=== PATIENT | male | born 1975 | race Caucasian/White ===

== ENCOUNTER 2023-02-13 17:05 | Observation (INO) | payer SELFPAY ==
[2023-02-13] VITALS (39 sets, daily range): BP systolic 157–223; BP diastolic 92–137; PULSE 72–119; RESP 8–23; TEMP 36.7; O2SAT 96–100
--- NOTE | 2023-02-13 17:49 | DI.CT_ITS ---
Exam(s) CT HEAD WO EXAM: CT HEAD WO CLINICAL HISTORY: ams. TECHNIQUE: Imaging Protocol: Axial computed tomography images with coronal and sagittal reformatted images were created and reviewed COMPARISON: No exams were available for comparison FINDINGS: There are no skull fractures. There is no fluid in the visualized paranasal sinuses. There is no evidence of intracranial hemorrhage, mass effect, or shift of midline structures. There are no extra-axial fluid collections. The ventricles are not enlarged or shifted and there is no blo od within the ventricular system nor within the basal cisterns. IMPRESSION: No acute intracranial findings on this noninfused CT scan of the brain. RADIATION DOSE DELIVERED: Total DLP DATA REPOSITORY: All CT scans at this facility are submitted to the National Radiology Data Registry (NRDR) Dose Index Registry (DIR) with the [employer] ([employer]). RADIATION OPTIMIZATION: All CT scans at this facility use at least one of these dose optimization te chniques: automated exposure control; mA and/or kV adjustment per patient size (includes targeted exa ms where dose is matched to clinical indication); or iterative reconstruction.
[2023-02-13] MEDS: Ondansetron 4 MG/2 ML VIAL (17:50)
--- NOTE | 2023-02-13 17:53 | DI.VRAD_ITS ---
PROCEDURE INFORMATION: Exam: CT Head Without Contrast Exam date and time: 02/13/2023 5:41 PM Age: 47 years old Clinical indication: Altered mental status/memory loss; Other: Believed to have fell while skiing, doesn't remember. Patient HX: AMS TECHNIQUE: Imaging protocol: Computed tomography of the head without contrast. COMPARISON: No relevant prior studies available. FINDINGS: Brain: Mild volume loss No hemorrhage. Unremarkable white matter. No mass effect. Cerebral ventricles: No ventriculomegaly. Paranasal sinuses: Visualized sinuses are unremarkable. No fluid levels. Mastoid air cells: Visualized mastoid air cells are well aerated. Bones/joints: Unremarkable. No acute fracture. Soft tissues: Unremarkable. IMPRESSION: No acute intracranial abnormality. Dictated and Authenticated by: Ivan Ross MD. Ordering:[facility] Anne Patel MD
[2023-02-13 18:05] LABS: Abs Immature Grans 0.03 10^3/uL (0.0-0.06); Absolute Basophil Count 0.04 10^3/uL (0.0-0.2); Absolute Eosinophil Count 0.06 10^3/uL (0.0-0.7); Absolute Monocyte Count 0.53 10^3/uL (0.1-0.8); Absolute Neutrophil Count 7.35 10^3/uL (1.2-6.7); Basophils % 0.4; Eosinophils % 0.6; HCT 51.6 % (40.0-50.0); HGB 17.6 g/dL (13.5-17.5); Immature Grans % 0.3; MCH 30.3 pg (27.0-33.0); MCHC 34.1 % (32.0-36.0); MCV 89 fL (80-95); MPV 10.2 fL (8.0-11.0); Monocytes % 5.7; Platelet Count 276 10^3/uL (130-400); RDW 12.2 % (11.8-14.1); RDW-SD 39.8 fL; WBC 9.31 10^3/uL (4.4-10.8)
[2023-02-13 18:17] LABS: Prothrombin Time 10.2 sec (9.1-11.1)
[2023-02-13 18:23] LABS: *AMPHETAMINES SCREEN URINE Negative (Negative); *BARBITURATES SCREEN URINE Negative (Negative); *BENZODIAZEPINES SCREEN URINE Negative (Negative); Cannabinoids THC Negative (Negative); Cocaine Screen,Urine Negative (Negative); METHADONE URINE SCREEN Negative (Negative); OPIATES URINE SCREEN Negative (Negative)
[2023-02-13 18:25] LABS: Tricyclic Antidepressants Negative (Negative)
[2023-02-13 18:27] LABS: ALT 27 U/L (16-63); AST 21 U/L (15-37); Albumin 4.7 g/dL (3.4-5.0); Alkaline Phosphatase 77 U/L (46-116); BUN 12 mg/dL (7-18); Bilirubin, Total 0.8 mg/dL (0.2-1.0); CREATININE 1.2 mg/dL (0.70-1.30); Chloride 101 mmol/L (98-107); Glucose 105 mg/dL (74-106); Potassium 3.4 mmol/L (3.5-5.1); Sodium 140 mmol/L (136-145); Total Protein 9.4 g/dL (6.4-8.2)
[2023-02-13 18:32] LABS: ETHANOL BLOOD < 3.0 mg/dL (<10)
[2023-02-13] MEDS: hydrALAZINE 20 MG/ML VIAL 10 MG IVP ×2 (18:37→19:24)
--- NOTE | 2023-02-13 19:02 | NUR.NOTE ---
Nursing Note: Called pts dm Valdivia with pts verbal consent to inform her that pt will have to be monitored and will not be able to make it to work tomorrow.
--- NOTE | 2023-02-13 19:32 | ED.GENADUL_ITS ---
Discharge Plan Disposition Patient Disposition: Admit to [facility] Discharge Details Chief Complaint: HeadInjury Clinical Impression: Post concussive syndrome, Hypertension Primary Care Provider: Angy,Local ED Provider: Francia Rodríguez Home Meds and New Rx's Prescriptions: No Action No Known Home Meds Medical Decision Making Emergent evaluation of altered mental status. Initial differential includes closed head injury, hypertensive emergency, intoxication. Patient has no obvious signs of trauma and other than his confusion, does not have focal neurologic deficits. He has noted to be very hypertensive but denies a history of hypertension and is stopped to take medicine for this his friend states that when they started speaking today, seem to be completely normal. It was not until this went down the [place] that he seemed to be confused. He did not see him fall or have a crash, but he assumed he did based on his appearance when he got to the bottom of the [place] [address] CT head without acute process. Lab works unremarkable including alcohol and drug levels. His blood pressure is still significantly elevated, I am not sure if this is contributing to his mental status. I have contacted [facility] for consultation and possible transfer. 2000 discussed with [facility] trauma surgery. After reviewing the case, it seems that this is likely severe concussive process. Blood pressure elevation is unlikely related to the head injury. I have added cardiac biomarkers and EKG and chest x-ray, these findings are unremarkable. Symptoms of confusion seem to being slightly but patient is still having significant memory issues. At this time I do not feel that he is stable for discharge home. I discussed with the hospitalist and will keep the patient in-house overnight for monitoring of his mental status and blood pressure. Medical Records Medical records reviewed: Yes I reviewed the patient's medical records. HPI General Date/Time Provider Initiated Documentation: 02/13/23 17:24 . Limitations to Documentation: altered mental status . Information obtained by: family . HPI Narrative: 47-year-old gentleman without known medical history presents for evaluation of altered mental status. Patient was skiing with his friend who provides the majority of the history today. The friend reports that he was skiing ahead of him and waited for the patient to arrive at the bottom of the hill. When he arrived at the bottom of the hill his helmet was askew his goggles were off and the lenses had been popped out of his goggles. The patient was then noted to be very confused. They were evaluated by the medical service at the [facility] who referred them to the emergency department for further evaluation. He denies any alcohol or drug use, but the patient cannot remember anything from the last 2 days. Related Data Home Medications Medication Instructions Recorded Confirmed Unknown [No Known Home Meds] 02/13/23 02/13/23 Allergies Allergy/AdvReac Type Severity Reaction Status Date / Time Sulfa (Sulfonamide Allergy Unverified 02/13/23 17:22 Antibiotics) cats Allergy Uncoded 02/13/23 17:22 General Stated Complaint: HeadInjury MAXINE: 3 PFSH All Active Problems (Updated 02/13/23 @ 20:49 by Francia Rodríguez MD) Hypertension (Acute) Post concussive syndrome (Acute) Social History Smoking/Tobacco Use Status: Never Smoking risk assessment performed?: Yes Alcohol Intake: never Substance use type: does not use Do you feel safe at home: Yes Do you feel safe in your relationship?: Yes Exam Narrative Exam Narrative: Review of Systems: All systems reviewed & are unremarkable except as noted in HPI and below: CONSTITUTIONAL: Alert Well-developed, no acute distress + Hypertensive HEENT: NCAT EYES: PERRL, no conjunctival injection CVS: RRR, No murmurs or gallops. Peripheral pulses 2+ and equal in all extremities Brisk capillary refill in all extremities. No peripheral edema RESP: Unlabored respiratory effort, Clear to auscultation bilaterally No wheezes rales or rhonchi GI: Soft, Nontender, Nondistended, No organomegaly MSK: Extremities with full range of motion, no deformity or TTP SKIN: Warm, Dry. No rashes or lesions. NEURO: No focal neurologic deficits. gear changer II-XII grossly intact Oriented to self, able to identify his friend, not able to identify location, date or month Course Vital Signs Vital signs: Vital Signs Temperature 36.7 C 02/13/23 17:15 Pulse 82 02/13/23 17:15 Respiratory Rate 18 02/13/23 17:15 Blood Pressure 223/124 H 02/13/23 17:15 Pulse Oximetry 97 02/13/23 17:15 Temperature 36.7 C 02/13/23 17:15 Pulse 88 02/13/23 19:00 Pulse 89 12/03/23 19:01 Respiratory Rate 15 02/13/23 19:01 Respiratory Effort Normal 02/13/23 17:31 Respiratory Depth Normal 02/13/23 17:31 Respiratory Pattern Normal 02/13/23 17:31 Blood Pressure 211/113 H 02/13/23 19:00 Blood Pressure Mean 150 02/13/23 19:00 Blood Pressure Position Sitting 02/13/23 17:15 Pulse Oximetry 98 02/13/23 19:01 Oxygen Delivery Method Room Air 02/13/23 17:15 Oxygen Flow Rate 0 02/13/23 17:15 Lab/Test Results Lab/Test Results: Laboratory Tests Range/Units 02/13/23 02/13/23 17:25 17:30 WBC (4.4-10.8) 10^3/uL 9.31 RBC (4.36-5.78) 10^6/uL 5.80 H Hgb (13.5-17.5) g/dL 17.6 H Hct (40.0-50.0) % 51.6 H MCV (80-95) fL 89 MCH (27.0-33.0) pg 30.3 MCHC (32.0-36.0) % 34.1 RDW (11.8-14.1) % 12.2 Plt Count (130-400) 10^3/uL 276 MPV (8.0-11.0) fL 10.2 Immature Gran % 0.3 Neutrophils % 79.0 Lymphocytes % 14.0 Monocytes % 5.7 Eosinophils % 0.6 Basophils % 0.4 Nucleated RBC % (0.0-0.3) % 0.0 Absolute Neutrophils (1.2-6.7) 10^3/uL 7.35 H Absolute Lymphocytes (1.2-3.4) 10^3/uL 1.30 Absolute Monocytes (0.1-0.8) 10^3/uL 0.53 Absolute Eosinophils (0.0-0.7) 10^3/uL 0.06 Absolute Basophils (0.0-0.2) 10^3/uL 0.04 PT (9.1-11.1) sec 10.2 INR (0.9-1.1) 1.0 Sodium (136-145) mmol/L 140 Potassium (3.5-5.1) mmol/L 3.4 L Chloride (98-107) mmol/L 101 Carbon Dioxide (21.0-32.0) mmol/L 28.0 Anion Gap (3-11) mmol/L 11.0 BUN (7-18) mg/dL 12 Creatinine (0.70-1.30) mg/dL 1.2 Est GFR (CKD-EPI 2020) (mL/min/1.73m2) 76.00 Glucose (74-106) mg/dL 105 Calcium (8.5-10.1) mg/dL 10.0 Total Bilirubin (0.2-1.0) mg/dL 0.8 AST (15-37) U/L 21 ALT (16-63) U/L 27 Alkaline Phosphatase (46-116) U/L 77 Total Protein (6.4-8.2) g/dL 9.4 H Albumin (3.4-5.0) g/dL 4.7 Urine Opiates Screen (Negative) Negative Urine Methadone Screen (Negative) Negative Ur Barbiturates Screen (Negative) Negative Ur Tricyclics Screen (Negative) Negative Ur Amphetamines Screen (Negative) Negative U Benzodiazepines Scrn (Negative) Negative Urine Cocaine Screen (Negative) Negative Ur THC Screen (Negative) Negative Ethyl Alcohol (<10) mg/dL < 3.0
--- NOTE | 2023-02-13 20:00 | DI.RAD_ITS ---
Exam(s) XR PORTABLE CHEST AP EXAM: XR PORTABLE CHEST AP CLINICAL HISTORY: ams. TECHNIQUE: 2D digital imaging was performed. COMPARISON: No exams were available for comparison FINDINGS: Single AP portable view. Heart size is upper normal. The mediastinum is not widened. Lungs are clear. No infiltrates nor obvious pleural effusions. IMPRESSION: No acute pulmonary findings on this single AP portable view of the chest. DATA REPOSITORY: RADIATION DOSE DELIVERED:
--- NOTE | 2023-02-13 20:00 | RT.EKG_ITS ---
APPROVED REPORT Exam: Resting ECG Reason for Exam: hypertension Patient Location: E HR:106 bpm ECG Measurements Heart Rate 106 AXIS SC 147 P 50 QRSd 89 QRS -5 QT 358 T -8 QTc 475 Conclusion Sinus tachycardia rate [address] changes
--- NOTE | 2023-02-13 20:26 | DI.VRAD_ITS ---
PROCEDURE INFORMATION: Exam: XR Chest Exam date and time: 02/13/2023 8:12 PM Age: 47 years old Clinical indication: Other: AMS TECHNIQUE: Imaging protocol: Radiologic exam of the chest. Views: 1 view. COMPARISON: No relevant prior studies available. FINDINGS: Lungs: Unremarkable. No consolidation. Pleural spaces: Unremarkable. No pleural effusion. No pneumothorax. Heart/Mediastinum: Unremarkable. No cardiomegaly. Bones/joints: Unremarkable. IMPRESSION: No acute findings. Dictated and Authenticated by: Ivan Ross MD. [facility] Anne Patel MD
--- NOTE | 2023-02-13 20:29 | HPE_ITS ---
Date of service: 02/13/23 Time of Service: 20:29 Assessment and Plan Assessment and plan (1) Post concussive syndrome: Status: Acute Assessment and plan: referred to observation. head CT with no acute intracranial findings. neuro exam overnight. keep diet light non narcotic pain medication, antiemetics if needed. (2) Hypertension: Status: Acute Assessment and plan: blood pressure found to be elevated in setting of suspected head injury. no findings on CT and neuro exam unremarkable. EKG and troponin unremarkable will monitor anticipate discharge tomorrow if remains medically stable. discussed with Dr Lawrence History of Present Illness History of Present Illness Chief Complaint: altered mental status Narrative: this is a 47 year old male with no significant past medical history, per ED record: 47-year-old gentleman without known medical history presents for evaluation of altered mental status. Patient was skiing with his friend who provides the majority of the history today. The friend reports that he was skiing ahead of him and waited for the patient to arrive at the bottom of the [place]. When he arrived at the bottom of the [place] his helmet was askew his goggles were off and the lenses had been popped out of his goggles. The patient was then noted to be very confused. They were evaluated by the medical service at the [facility] who referred them to the emergency department for further evaluation. He denies any alcohol or drug use, but the patient cannot remember anything from the last [address] unremarkable. only finding was hypertension and tachycardia, which I suspect d/t anxiety which he admits d/t loss of memory. he received hydralazine in ED x2 dose. his case was discussed with neuro who recommends workup for HTN, EKG and trop added. requested hosp admit for obs. only c/o at time of assessment is of mild headache denies n/v, cervical spine tenderness on palp, or abdominal pain, no obvious evidence of physical trauma on exam Review of Systems All systems reviewed & are unremarkable except as noted in HPI and below PFSH All Active Problems (Updated 02/13/23 @ 20:49 by Francia Rodríguez MD) Hypertension (Acute) Post concussive syndrome (Acute) Social History Smoking/Tobacco Use Status: Never Smoking risk assessment performed?: Yes Alcohol Intake: never Substance use type: does not use Housing: apartment Do you feel safe at home: Yes Do you feel safe in your relationship?: Yes Meds Allergies and Home Medications Allergies Allergy/AdvReac Type Severity Reaction Status Date / Time Sulfa (Sulfonamide Allergy Unverified 02/13/23 17:22 Antibiotics) cats Allergy Uncoded 02/13/23 17:22 Home Medications Medication Instructions Recorded Confirmed Type Unknown [No Known Home Meds] 02/13/23 02/13/23 History Exam Const General: cooperative, healthy appearing, comfortable, no acute distress and well developed Nutritional Appearance: average body habitus Orientation: alert, awake and oriented x3 (unable to recall events of past 2 days, not repetitive) HENMT Head: normal to inspection, normocephalic and atraumatic General nose exam: external nose normal, nares normal and no nasal discharge Face and sinus: normal facial exam Mouth: oral mucosae normal Throat: posterior oropharynx normal Eyes General: appearance normal, both eyes and all related structures Neck Neck: normal visual inspection, full ROM and nontender Chest Chest: normal inspection of the chest, no crepitus and no tenderness Resp Effort & Inspection: normal respiratory effort Auscultation: clear to auscultation bilaterally Cardio Rate: tachycardic Rhythm: regular rhythm GI Inspection: normal to inspection and no abdominal wall ecchymosis Palpation: soft, no guarding, no masses and nontender Skin General skin exam: no rashes or lesions noted Neuro General: patient alert, patient awake, patient oriented x3, tone normal, moves all extremities and no focal motor deficits Cranial Nerves: CN's II-XI intact bilaterally, PERRL, EOM intact bilaterally and facial strength normal Speech: speech normal Gait: normal gait Motor: muscle tone normal throughout and strength 5/5 throughout Extrem General: normal to inspection, full ROM and no pedal edema Psych Appearance: grossly normal Mental Status: mental status grossly normal Speech and Movement: speech and movement normal Affect: blunted Attitude: cooperative Thought Process: normal Thought Content: normal Insight: fair Judgment: fair Results Labs 02/13/23 17:30 02/13/23 17:30 Labs: Laboratory Results - last 24 hr 02/13/23 02/13/23 17:25 17:30 WBC 9.31 RBC 5.80 H Hgb 17.6 H Hct 51.6 H MCV 89 MCH 30.3 MCHC 34.1 RDW 12.2 Plt Count 276 MPV 10.2 Immature Gran % 0.3 Neutrophils % 79.0 Lymphocytes % 14.0 Monocytes % 5.7 Eosinophils % 0.6 Basophils % 0.4 Nucleated RBC % 0.0 Absolute Neutrophils 7.35 H Absolute Lymphocytes 1.30 Absolute Monocytes 0.53 Absolute Eosinophils 0.06 Absolute Basophils 0.04 PT 10.2 INR 1.0 Sodium 140 Potassium 3.4 L Chloride 101 Carbon Dioxide 28.0 Anion Gap 11.0 BUN 12 Creatinine 1.2 Est GFR (CKD-EPI 2020) 76.00 Glucose 105 Calcium 10.0 Total Bilirubin 0.8 AST 21 ALT 27 Alkaline Phosphatase 77 Total Protein 9.4 H Albumin 4.7 Urine Opiates Screen Negative Urine Methadone Screen Negative Ur Barbiturates Screen Negative Ur Tricyclics Screen Negative Ur Amphetamines Screen Negative U Benzodiazepines Scrn Negative Urine Cocaine Screen Negative Ur THC Screen Negative Ethyl Alcohol < 3.0 Last Vital Signs Temp 36.7 C 02/13/23 17:15 Pulse 88 02/13/23 19:00 Resp 15 02/13/23 19:01 BP 211/113 H 02/13/23 19:00 Pulse Ox 98 02/13/23 19:01 Time Spent Time spent with Patient: 40-54 minutes Time was spent: preparing to see the patient(eg.review tests), obtaining and/or reviewing separately otained hiistory, ordering medications,tests, procedures, indepentently interpreting results and counseling the patient
[2023-02-13 20:39] LABS: Troponin I < 50 ng/L (<or=60)
[2023-02-13] MEDS: Acetaminophen 500 MG TAB 1000 MG PO (20:50)
[2023-02-14 01:48] VITALS: BP 159/72; PULSE 96; RESP 18; TEMP 36.7; O2SAT 99
[2023-02-14 08:00] VITALS: BP 160/90; PULSE 86; RESP 16; TEMP 36.2; O2SAT 99
[2023-02-14] MEDS: Acetaminophen 325 MG TAB 650 MG PO (08:03)
[2023-02-14 08:46] LABS: Abs Immature Grans 0.03 10^3/uL (0.0-0.06); Absolute Basophil Count 0.02 10^3/uL (0.0-0.2); Absolute Eosinophil Count 0.04 10^3/uL (0.0-0.7); Absolute Lymphocyte Count 1.45 10^3/uL (1.2-3.4); Absolute Neutrophil Count 5.73 10^3/uL (1.2-6.7); Basophils % 0.3; Eosinophils % 0.5; HCT 49.1 % (40.0-50.0); HGB 16.3 g/dL (13.5-17.5); Immature Grans % 0.4; Lymphocytes % 18.7; MCH 29.5 pg (27.0-33.0); MCHC 33.2 % (32.0-36.0); MCV 89 fL (80-95); MPV 9.9 fL (8.0-11.0); Monocytes % 6.4; Neutrophils % 73.7; Platelet Count 245 10^3/uL (130-400); RBC 5.52 10^6/uL (4.36-5.78); RDW 12.6 % (11.8-14.1); RDW-SD 41.2 fL; WBC 7.77 10^3/uL (4.4-10.8)
[2023-02-14 09:12] LABS: Anion Gap 9.3 mmol/L (3-11); BUN 9 mg/dL (7-18); CO2 27.7 mmol/L (21.0-32.0); CREATININE 1.3 mg/dL (0.70-1.30); Calcium 9.3 mg/dL (8.5-10.1); Chloride 104 mmol/L (98-107); Estimated GFR 69.04 (mL/min/1.73m2); Glucose 109 mg/dL (74-106); Potassium 3.6 mmol/L (3.5-5.1); Sodium 141 mmol/L (136-145)
[2023-02-14] MEDS: Normal Saline Flush 10 ML SYR IVP (09:45)
--- NOTE | 2023-02-14 09:54 | DSE_ITS ---
Date of service: 02/14/23 Time of Service: 09:54 DS: Diagnosis Discharge Diagnosis (1) Post concussive syndrome: Status: Acute (2) Hypertension: Status: Acute Discharge Plan Disposition Patient Disposition: Home Condition: Improving Discharge Details Reason For Visit: post concussive syndrome Admit Date/Time: 02/13/23 20:23 Admit Provider: Roly Lawrence Attending Provider: Roly Lawrence [facility]: this is a 47 year old male with no significant past medical history, per ED record: 47-year-old gentleman without known medical history presents for evaluation of altered mental status. Patient was skiing with his friend who provides the majority of the history today. The friend reports that he was skiing ahead of him and waited for the patient to arrive at the bottom of the [place]. When he arrived [place] the [place] of [place] his helmet was askew his goggles were off and the lenses had been popped out of his goggles. The patient was then noted to be very confused. They were evaluated by the medical service at the [facility] who referred them to the emergency department for further evaluation. He denies any alcohol or drug use, but the patient cannot remember anything from the last 2 days. Workup in the emergency department included a head CT which was unremarkable. only finding was hypertension and tachycardia. he received hydralazine in ED x2 dose. his case was discussed with neuro who recommends workup for HTN, EKG and trop added. He was admitted to the hospitalist services under observation for further monitoring. His EKG and troponin were unremarkable. Overnight he rested comfortably with improvement in his symptoms. He was still complaining of a mild headache but otherwise asymptomatic. He was starting to recall some events from yesterday but still with some retrograde amnesia. he is tolerating a regular diet and has been safely really ambulated. He states he feels at his baseline and stable for discharge to home. He will follow-up with his primary care provider for recheck and reevaluation of his blood pressure. He is given head injury discharge instructions. Home Meds and New Rx's Prescriptions: No Action No Known Home Meds Discharge Instructions Instructions: Post Concussion Syndrome (ED), Concussion (DC) Additional Instructions: keep diet light as you may experience nausea and vomiting next few days can use [id number] pain medication for symptoms as needed Can use ice to affected areas if needed after 1 day can use heat or ice Your blood pressures were noted to be elevated while hospitalized. If you have the ability to check your blood pressure outpatient keep a log to bring to your primary care provider's office checking it 3 times weekly. Discussed blood pressure and blood pressure management with your primary care provider return to closest emergency department for new or worsening symptoms Referrals: No,Local [Primary Care Provider] - (see primary care provider for follow up, blood pressure check) Activity:: Activity as Tolerated Equipment/Supplies:: No Equipment Needed Diet:: As Tolerated Discharge Orders Discharge Orders: Discharge Order (Routine); Ordered 02/14/23 Ordered By: Elaine Medley DS: Summary Time Spent with Patient providing and/or coordinating discharge services: Less than 30 minutes Status at Discharge Functional status at discharge: independent ambulation Overall status at discharge: patient is progressing back to baseline Mental Status: mental status grossly normal Speech and Movement: speech and movement normal Mood: congruent mood Affect: blunted Exam Const General: cooperative, healthy appearing, comfortable, no acute distress and well developed Nutritional Appearance: average body habitus Orientation: alert, awake and oriented x3 (unable to recall events of past 2 days, not repetitive) HENMT Head: normal to inspection, normocephalic and atraumatic General nose exam: external nose normal, nares normal and no nasal discharge Face and sinus: normal facial exam Mouth: oral mucosae normal Throat: posterior oropharynx normal Eyes General: appearance normal, both eyes and all related structures Neck Neck: normal visual inspection, full ROM and nontender Chest Chest: normal inspection of the chest, no crepitus and no tenderness Resp Effort & Inspection: normal respiratory effort Auscultation: clear to auscultation bilaterally Cardio Rate: tachycardic Rhythm: regular rhythm GI Inspection: normal to inspection and no abdominal wall ecchymosis Palpation: soft, no guarding, no masses and nontender Skin General skin exam: no rashes or lesions noted Neuro General: patient alert, patient awake, patient oriented x3, tone normal, moves all extremities and no focal motor deficits Cranial Nerves: CN's II-XI intact bilaterally, PERRL, EOM intact bilaterally and facial strength normal Speech: speech normal Gait: normal gait Motor: muscle tone normal throughout and strength 5/5 throughout Extrem General: normal to inspection, full ROM and no pedal edema Psych Appearance: grossly normal Mental Status: mental status grossly normal Speech and Movement: speech and movement normal Mood: congruent mood Affect: blunted Attitude: cooperative Thought Process: normal Thought Content: normal Insight: fair Judgment: fair DS: Data Vitals/I&O Vitals and I&O: Vital Signs Temperature 36.2 C L 02/14/23 08:00 Temperature Source Tympanic 02/14/23 08:00 Pulse 86 02/14/23 08:00 Pulse Rhythm Regular 02/13/23 21:44 Pulse 89 02/13/23 21:20 Respiratory Rate 16 02/14/23 08:00 Respiratory Effort Normal, Non-Labored 02/13/23 21:44 Respiratory Depth Normal 02/13/23 21:44 Respiratory Pattern Normal 02/13/23 21:44 Blood Pressure 160/90 H 02/14/23 08:00 Blood Pressure Mean 121 02/13/23 20:31 Blood Pressure Position Sitting 02/13/23 17:15 Pulse Oximetry 99 02/14/23 08:00 Oxygen Delivery Method Room Air 02/14/23 08:00 Oxygen Flow Rate 0 02/14/23 08:00 Pain Level 3 02/14/23 08:03 Comment patient breathing freely on room air in no cp distress 02/13/23 21:44 Intake & Output 02/13/23 02/13/23 02/14/23 11:59 23:59 11:59 Weight 97.522 kg Other: Urine Appearance Clear Data Completed and Pending Labs on day of discharge: Labs from last 24 hours 02/14/23 02/13/23 02/13/23 08:30 17:30 17:25 WBC 7.77 9.31 RBC 5.52 5.80 H Hgb 16.3 17.6 H Hct 49.1 51.6 H MCV 89 89 MCH 29.5 30.3 MCHC 33.2 34.1 RDW 12.6 12.2 Plt Count 245 276 MPV 9.9 10.2 Immature Gran % 0.4 0.3 Neutrophils % 73.7 79.0 Lymphocytes % 18.7 14.0 Monocytes % 6.4 5.7 Eosinophils % 0.5 0.6 Basophils % 0.3 0.4 Nucleated RBC % 0.0 0.0 Absolute Neutrophils 5.73 7.35 H Absolute Lymphocytes 1.45 1.30 Absolute Monocytes 0.50 0.53 Absolute Eosinophils 0.04 0.06 Absolute Basophils 0.02 0.04 PT 10.2 INR 1.0 Sodium 141 140 Potassium 3.6 3.4 L Chloride 104 101 Carbon Dioxide 27.7 28.0 Anion Gap 9.3 11.0 BUN 9 12 Creatinine 1.3 1.2 Est GFR (CKD-EPI 2020) 69.04 76.00 Glucose 109 H 105 Calcium 9.3 10.0 Total Bilirubin 0.8 AST 21 ALT 27 Alkaline Phosphatase 77 Troponin I < 50 Total Protein 9.4 H Albumin 4.7 Urine Opiates Screen Negative Urine Methadone Screen Negative Ur Barbiturates Screen Negative Ur Tricyclics Screen Negative Ur Amphetamines Screen Negative U Benzodiazepines Scrn Negative Urine Cocaine Screen Negative Ur THC Screen Negative Ethyl Alcohol < 3.0 PFSH All Active Problems (Updated 02/13/23 @ 20:49 by Francia Rodríguez MD) Hypertension (Acute) Post concussive syndrome (Acute) Social History Smoking/Tobacco Use Status: Never Smoking risk assessment performed?: Yes Alcohol Intake: never Substance use type: does not use Housing: apartment Do you feel safe at home: Yes Do you feel safe in your relationship?: Yes Time Spent with Patient Time Spent with Patient: <45 minutes Time was spent: preparing to see the patient(eg.review tests), ordering medications,tests, procedures, indepentently interpreting results and counseling the patient
== END 2023-02-14 11:33 | disposition home or self-care (01) ==
LOC: ER 20:52 → MS 21:42
PROVIDERS: Nurse Practitioner Acute Care; Admitting Provider Family Medicine; Emergency Provider Emergency Medicine; Visit Provider Family Medicine
DX: F07.81 Postconcussional syndrome (principal); R41.82 Altered mental status, unspecified; I10 Essential (primary) hypertension; R41.2 Retrograde amnesia; R00.0 Tachycardia, unspecified; R51.9 Headache, unspecified; X58.XXXA Exposure to other specified factors, initial encounter; Y93.23 Activity, snow (alpine) (downhill) skiing, snowboarding, sledding, tobogganing and snow tubing
CPT/HCPCS: 00123; 36415; 80048; 80053; 80307; 93005; 96374; 96375; 99285; 70450; 71045; 80320; 84484; 85025; 85610; 93010; 99222; 99238; G0378; J0360; J2405